=== PATIENT | male | born 1990 | race Caucasian/White ===

== ENCOUNTER 2024-08-29 13:51 | Inpatient (IN) ==
--- NOTE | 2024-08-29 14:10 | Emergency Department Note ---
Impression & Plan Right lower lobe pneumonia, Sepsis, Elevated procalcitonin, Acute dyspnea ED Provider Note HISTORY OF PRESENT ILLNESS: Patient is a 34-year-old male presenting with cough and shortness of breath. Patient reports that a week ago he was in [place] and he returned home and started having flulike symptoms over the last week. He states that in the last 4 days he has had significant worsening shortness of breath and cough. He reports he has been unable to sleep over the last few days secondary to having coughing fits when he lays down. He denies any DVT or PE history. Reports subjective fevers and chills at home. He has been taking DayQuil since yesterday for his symptoms. He denies any chest pain. He reports nausea and vomiting, but denies any diarrhea or abdominal pain. Reports his cough is productive of a clear sputum and denies any hemoptysis or color to the phlegm. ROS: as above PHYSICAL EXAM: Constitutional: Patient appears in no acute distress. HENT: Head: Normocephalic and atraumatic. Eyes: EOMI, PERRL Mouth/Throat: Mucous membranes moist. Neck: Trachea midline. Neck supple. Cardiovascular: Tachycardic with regular rhythm. No murmurs, rubs or gallops. Intact distal pulses. Pulmonary/Chest: Conversationally dyspneic. Tachypneic. Abdominal: Abdomen soft, no tenderness, rebound or guarding. Musculoskeletal: No edema, tenderness or deformity noted. Skin: Warm and dry. No rash, erythema, pallor or cyanosis Psychiatric: Appropriate mood and affect for situation. Neurological: Alert and keenly responsive. CN II-XII grossly intact, moving all extremities equally and fully. MDM: - Vitals signs showed tachycardia - History obtained via patient. History as above. - Chronic conditions affecting care: None - Differential diagnoses include, but are not limited to: Congestive heart failure; acute coronary syndrome; COPD/asthma exacerbation; pulmonary edema; pulmonary embolism; pneumonia; pneumothorax; viral syndrome - Order placed for continuous cardiac monitoring. At this time, monitor showed rate of 133 bpm with normal sinus rhythm, per my interpretation. - External medical records reviewed. - EKG image interpreted by myself showed normal sinus rhythm. Rate tachycardia at 114 bpm. QT 310. No acute ischemic changes. - Laboratory workup interpreted by myself showed normal WBC; normal PT/INR; hyponatremia (Na 133); normal lactate; normal troponin; elevated procalcitonin (1.62) - Blood cultures obtained - CXR image reviewed by myself showed what appears to be a right lower lobe pneumonia, per my interpretation. Radiology also notes a right lower lobe pneumonia. - Viral respiratory panel negative - Patient given 2L NS in ER. Patient's sepsis fluid volume calculation based on ideal body weight is 1936.20 mL. - Patient's HR improved with fluid resuscitation. Patient's blood pressure remained stable. - Given IV rocephin + azithromycin for antibiotic coverage - Given patient's tachycardia, tachypnea and evidence of pneumonia, he meets sepsis criteria. - CT PE obtained, given patient's tachypnea and tachycardia to rule out PE. - CT PE negative for PE. Noted to have the right lower lobe pneumonia and reactive lymphadenopathy. - Discussion was had with caser in about patient's case and need for admission - Hospitalist, Dr. Lui, consulted for admission - [facility] ASSESSMENT AND PLAN: Diagnosis: right lower lobe pneumonia; sepsis; elevated procalcitonin; acute dyspnea Plan: admit Past Med/Surg History Problem List (Updated 08/29/24 @ 15:22 by Ann Adorno MD) Acute dyspnea (Acute) Elevated procalcitonin (Acute) Sepsis (Acute) Right lower lobe pneumonia (Acute) Left shoulder pain (Acute) Social History Smoking Status: Never smoker Preferred Language: Venezuelan Feels Safe at Home: Yes Allergies Allergies Allergy/AdvReac Type Severity Reaction Status Date / Time Milk Containing Products Allergy Intermediate Gastrointestinal Unverified 08/29/24 15:44 (Dairy) Upset Penicillins AdvReac Mild RASH Unverified 08/29/24 15:42 Sulfa (Sulfonamide AdvReac Mild RASH Unverified 08/29/24 15:42 Antibiotics) Home Meds Home Medications Medication Instructions Recorded Confirmed No Known Home Medications 08/29/24 08/29/24 Results & Data (ED) Vital Signs Vital Signs - 24 hr 08/29/24 13:54 08/29/24 14:00 08/29/24 14:00 Pulse Rate 129 H Pulse Rate [Apical] 110 H Pulse Rhythm Respiratory Rate 20 16 Respiratory Effort / Characteristics Non-Labored Spontaneous Non-Labored Spontaneous Respiratory Depth Normal Normal Respiratory Pattern Regular Blood Pressure 139/64 Blood Pressure [Left Arm] 116/78 Blood Pressure Mean 89 Blood Pressure Mean [Left Arm] 90 Pulse Oximetry 97 95 95 Oxygen Delivery Method Room Air Room Air Room Air Sepsis Recent Fever Within 48 Hours Yes Sepsis New/Unexplained Change in Mental Status No Sepsis Action Taken by Nursing No Action Required 08/29/24 14:00 Pulse Rate 110 H Pulse Rate [Apical] Pulse Rhythm Regular Respiratory Rate 18 Respiratory Effort / Characteristics Respiratory Depth Respiratory Pattern Blood Pressure Blood Pressure [Left Arm] Blood Pressure Mean Blood Pressure Mean [Left Arm] Pulse Oximetry 95 Oxygen Delivery Method Room Air Sepsis Recent Fever Within 48 Hours Sepsis New/Unexplained Change in Mental Status Sepsis Action Taken by Nursing Laboratory Data 08/29/24 14:10 08/29/24 14:10 Lab Results 08/29/24 08/29/24 Range/Units 14:10 15:21 WBC 7.74 (4.8-10.8) K/ul RBC 5.23 (4.70-6.10) M/uL Hgb 15.4 (14.0-18.0) g/dl Hct 44.0 (42.0-52.0) % MCV 84.1 (80.0-100.0) fL MCH 29.4 (25.0-34.0) pg MCHC 35.0 (32.0-36.0) g/dL RDW Std Deviation 36.3 L (36.4-46.3) fL RDW Coeff of Zoraida 12.0 (11.5-14.5) % Plt Count 191 (130-400) K/uL MPV 9.9 (9.4-12.4) fL Immature Gran % (Auto) 0.5 % Neut % (Auto) 79.2 % Lymph % (Auto) 16.1 % [place] % (Auto) 4.1 % Eos % (Auto) 0.0 % Baso % (Auto) 0.1 % Neut # (Auto) 6.12 (1.40-6.50) K/uL Lymph # (Auto) 1.25 (1.20-3.40) K/uL [place] # (Auto) 0.32 (0.11-0.59) K/uL Eos # (Auto) 0.00 (0.00-0.50) K/uL Baso # (Auto) 0.01 (0.00-0.20) K/uL Immature Gran # (Auto) 0.04 (0.01-0.20) K/uL PT 10.7 (9.0-12.0) Seconds INR 1.0 (0.9-1.1) APTT 33 H (21-31) Seconds PTT Ratio 1.2 Sodium 133 L (136-145) mmol/L Potassium 3.8 (3.5-5.1) mmol/L Chloride 96 L (98-107) mmol/L Carbon Dioxide 26 (21-32) mmol/L Anion Gap 11 (3-11) BUN 12 (6-23) mg/dl Creatinine 1.11 (0.6-1.4) mg/dl Est Cr Clr Drug Dosing 101.4 ml/min eGFR 90.48 BUN/Creatinine Ratio 10.8 (10-20) Glucose 104 H (70-99(Fasting)) mg/dl Lactate 1.6 (0.4-2.0) mmol/L Calcium 8.8 (8.6-10.3) mg/dl Magnesium 2.0 (1.7-2.4) mg/dl Total Bilirubin 0.8 (0.2-1.0) mg/dl AST 46 H (13-39) U/L ALT 23 (7-52) U/L Alkaline Phosphatase 61 (34-104) U/L Troponin I High Sens 10.3 (0-20) pg/ml Total Protein 8.2 (6.0-8.3) gm/dl Albumin 3.9 (3.4-5.0) gm/dl Globulin 4.3 H (2.5-4.0) gm/dl Albumin/Globulin Ratio 0.9 (0.9-2) Procalcitonin 1.62 H (0-0.5) ng/ml Urine Comment Adenovirus (PCR) Not Detected (NotDetected) B. pertussis DNA (PCR) Not Detected (NotDetected) B.parapertussis DNA PCR Not Detected (NotDetected) C. pneumoniae DNA (PCR) Not Detected (NotDetected) Coronavirus OC43 (PCR) Not Detected (NotDetected) Coronavirus HKU1 (PCR) Not Detected (NotDetected) Coronavirus 229E (PCR) Not Detected (NotDetected) SARS-CoV-2 (PCR) Not Detected (NotDetected) Coronavirus NL63 (PCR) Not Detected (NotDetected) Human Metapneumovir PCR Not Detected (NotDetected) Influenza Type A (PCR) Not Detected (NotDetected) Influenza Type B (PCR) Not Detected (NotDetected) M. pneumoniae (PCR) Not Detected (NotDetected) Parainfluenza 1 (PCR) Not Detected (NotDetected) Parainfluenza 2 (PCR) Not Detected (NotDetected) Parainfluenza 3 (PCR) Not Detected (NotDetected) Parainfluenza 4 (PCR) Not Detected (NotDetected) RSV (PCR) Not Detected (NotDetected) Entero/Rhino (PCR) Not Detected (NotDetected) Administered Medications Discontinued Medications Azithromycin (Azithromycin 250 Mg Tab) 500 mg PO NOW ONE Stop: 08/29/24 14:59 Last Admin: 08/29/24 15:12 Dose: 500 mg Documented By: MARGARITA Sodium Chloride (Nss) 2,000 mls @ 999 mls/hr IV .Q2H1M ONE Stop: 08/29/24 15:59 Last Admin: 08/29/24 14:29 Dose: 999 mls/hr Documented By: CHELSIE Ceftriaxone Sodium (Rocephin) 2,000 mg in 50 mls @ 100 mls/hr IV NOW STA Stop: 08/29/24 15:27 Last Infusion: 08/29/24 15:52 Dose: Infused Documented By: Admin: 08/29/24 15:11 Dose: 100 mls/hr Documented By: MARGARITA Ioversol (Optiray 320 125ml) 119 ml IV ONCE ONE Stop: 08/29/24 15:26 Last Admin: 08/29/24 15:25 Dose: 119 ml Documented By: EDK Imaging Data Radiologist's Impression: Chest X-Ray 08/29/24 13:59 Chest radiograph, one view History: Sepsis Comparison: None Findings: Single AP view of the chest performed. Right lower lobe consolidation. No visualized pleural effusion. No pneumothorax. The cardiomediastinal silhouette is within normal limits. Normal pulmonary vascularity. No evidence for lymphadenopathy. No visualized bony or soft tissue abnormality. Impression: Right lower lobe pneumonia Electronically signed by Solitario Saucedo 08-29-2024 2:43 PM Chest CTA 08/29/24 14:07 CT pulmonary angiogram with IV contrast History: Cough COMPARISON: None TECHNIQUE: CT angiography of the chest was performed without IV contrast followed by IV contrast, including 3D post processing CTA image reconstruction. Dose reduction techniques were achieved by using automatic exposure control and/or adjustment of mA and/or kV according to patient size and/or use of iterative reconstruction technique. FINDINGS: Diagnostic quality: Adequate There is no evidence for pulmonary embolism. The heart is not enlarged. There is no pericardial effusion. Prominent mediastinal and right hilar lymph nodes, are likely reactive, for example at the subcarinal station measuring 19 mm short axis diameter. At the right hilum, axial image 65, is a 29 x 21 mm lymph node. The central tracheobronchial tree is clear. Patchy consolidative opacities throughout the right lower lobe. Small right pleural effusion. Limited visualized upper abdomen. No destructive osseous changes are seen. IMPRESSION: No evidence for pulmonary embolism. Right lower lobe pneumonia. Small pleural effusion. Reactive lymphadenopathy. Electronically signed by Solitario Saucedo 08-29-2024 3:54 PM Discharge Plan Visit Data Chief Complaint: Illness Stated Complaint: COUGH, FEVER, VOMITING FOR 7 DAYS ED Provider: Ann Adorno Discharge Problem: Right lower lobe pneumonia, Sepsis, Elevated procalcitonin, Acute dyspnea Condition: Fair Forms Stand Alone Forms: My [employer] Prescriptions Prescriptions: No Action No Known Home Medications Referrals Referrals: PCP,NO [Primary Care Provider] -
[2024-08-29 14:29] LABS: Hemoglobin 15.4 g/dl (14.0-18.0); Mean Corpuscular Hemoglobin 29.4 pg (25.0-34.0); Mean Corpuscular Volume 84.1 fL (80.0-100.0); Mean Platelet Volume 9.9 fL (9.4-12.4); Platelet Count 191 K/uL (130-400); RDW Standard Deviation 36.3 fL (36.4-46.3); Red Blood Count 5.23 M/uL (4.70-6.10); White Blood Count 7.74 K/ul (4.8-10.8)
[2024-08-29] MEDS: SODIUM CHLORIDE 0.9% 2,000 ML IV ONE (14:29)
--- NOTE | 2024-08-29 14:43 | XRay Report ---
Chest radiograph, one view History: Sepsis Comparison: None Findings: Single AP view of the chest performed. Right lower lobe consolidation. No visualized pleural effusion. No pneumothorax. The cardiomediastinal silhouette is within normal limits. Normal pulmonary vascularity. No evidence for lymphadenopathy. No visualized bony or soft tissue abnormality. Impression: Right lower lobe pneumonia Electronically signed by Solitario Saucedo 08-29-2024 2:43 PM
[2024-08-29 14:45] LABS: Basophils # (auto) 0.01 K/uL (0.00-0.20); Basophils % (auto) 0.1 %; Immature Granulocytes # (auto) 0.04 K/uL (0.01-0.20); Immature Granulocytes % (auto) 0.5 %; Lymphocytes # (auto) 1.25 K/uL (1.20-3.40); Lymphocytes % (auto) 16.1 %; Monocytes # (auto) 0.32 K/uL (0.11-0.59); Monocytes % (auto) 4.1 %; Neutrophils # (auto) 6.12 K/uL (1.40-6.50); Neutrophils % (auto) 79.2 %
[2024-08-29 14:47] LABS: Albumin Globulin Ratio 0.9 (0.9-2); Albumin Level 3.9 gm/dl (3.4-5.0); BUN Creatinine Ratio 10.8 (10-20); Bilirubin,Total 0.8 mg/dl (0.2-1.0); Calcium 8.8 mg/dl (8.6-10.3); Creatinine Clr Calc Pharmacy 101.4 ml/min; Globulin 4.3 gm/dl (2.5-4.0); Partial Thromboplastin Ratio 1.2; Partial Thromboplastin Time 33 Seconds (21-31); Potassium 3.8 mmol/L (3.5-5.1); Prothrombin Time 10.7 Seconds (9.0-12.0); Total Protein 8.2 gm/dl (6.0-8.3)
[2024-08-29 14:54] LABS: Troponin I High Sensitivity 10.3 pg/ml (0-20)
[2024-08-29] MEDS: cefTRIAXone SODIUM 2,000 MG/50 ML BAG IV STA (15:11)
[2024-08-29] MEDS: AZITHROMYCIN 250 MG TAB PO ONE (15:12)
[2024-08-29 15:18] LABS: Adenovirus PCR Not Detected (NotDetected); Bordetella parapertussis PCR Not Detected (NotDetected); Bordetella pertussis PCR Not Detected (NotDetected); Chlamydia pneumoniae PCR Not Detected (NotDetected); Coronavirus 229E PCR Not Detected (NotDetected); Coronavirus CoV-2 (COVID19)PCR Not Detected (NotDetected); Coronavirus HKU1 PCR Not Detected (NotDetected); Coronavirus NL63 PCR Not Detected (NotDetected); Coronavirus OC43PCR Not Detected (NotDetected); Human Metapneumovirus PCR Not Detected (NotDetected); Influenza A PCR Not Detected (NotDetected); Influenza B PCR Not Detected (NotDetected); Mycoplasma pneumoniae PCR Not Detected (NotDetected); Parainfluenza Virus 1 PCR Not Detected (NotDetected); Parainfluenza Virus 2 PCR Not Detected (NotDetected); Parainfluenza Virus 3 PCR Not Detected (NotDetected); Parainfluenza Virus 4 PCR Not Detected (NotDetected); Respiratory Syncytial VirusPCR Not Detected (NotDetected); Rhinovirus/Enterovirus PCR Not Detected (NotDetected)
[2024-08-29] MEDS: OPTIRAY 320 125ml IV ONE (15:25)
--- NOTE | 2024-08-29 15:56 | CT Scan Report ---
CT pulmonary angiogram with IV contrast History: Cough COMPARISON: None TECHNIQUE: CT angiography of the chest was performed without IV contrast followed by IV contrast, including 3D post processing CTA image reconstruction. Dose reduction techniques were achieved by using automatic exposure control and/or adjustment of mA and/or kV according to patient size and/or use of iterative reconstruction technique. FINDINGS: Diagnostic quality: Adequate There is no evidence for pulmonary embolism. The heart is not enlarged. There is no pericardial effusion. Prominent mediastinal and right hilar lymph nodes, are likely reactive, for example at the subcarinal station measuring 19 mm short axis diameter. At the right hilum, axial image 65, is a 29 x 21 mm lymph node. The central tracheobronchial tree is clear. Patchy consolidative opacities throughout the right lower lobe. Small right pleural effusion. Limited visualized upper abdomen. No destructive osseous changes are seen. IMPRESSION: No evidence for pulmonary embolism. Right lower lobe pneumonia. Small pleural effusion. Reactive lymphadenopathy. Electronically signed by Solitario Saucedo 08-29-2024 3:54 PM
[2024-08-29 16:15] LABS: Appearance Urine Clear (Clear); Bacteria Urine Automated None Seen (None Seen); Bilirubin Urine Negative (Negative); Blood Urine Trace (Negative); Color Urine Dark Yellow; Epithelial Cell Urine Auto 0-2 /hpf (0-2); Glucose Urine UA Negative (Negative); Granular Casts Urine Present /lpf (None Prsent); Ketones Urine 3+ (Negative); Leukocyte Esterase Urine Negative (Negative); Nitrite Urine Negative (Negative); Protein Urine 2+ (Negative); RBC Urine Automated 0-2 /hpf (0-2); Specific Gravity Urine 1.025 (1.000-1.030); Urobilinogen Urine Positive (Negative); WBC Urine Automated 0-5 /hpf (0-5); pH Urine 5.5 (4.5-7.5)
--- NOTE | 2024-08-29 16:33 | History & Physical Report ---
Date of Service August 29, 2024 Assessment & Plan (1) Acute dyspnea: (2) Elevated procalcitonin: (3) Right lower lobe pneumonia: Plan The patient is a 34 year old male with no pmh who presents to the ED on 08/29/2024 with complaints of cough/intermittent shortness of breath x 1 week lobe pneumonia Assessment and plan: Dyspnea Right lower lobe pneumonia BioFire negative, procalcitonin elevated, subjective fevers at home Continue p.o. Zithromax and IV ceftriaxone, blood cultures pending Robitussin as needed for cough, incentive spirometry currently not requiring oxygen at this time; monitor fever curve. Will likely be a short hospital stay, ADC in the next 24 hours if blood cultures negative and symptoms improve A total of 60 minutes was spent on chart review/reviewing diagnostic data/facilitating plan of care/discussion with consultants DVT prophylaxis: SCDs Full code History of Present Illness Chief Complaint: Cough, shortness of breath Primary Care Provider: NO PCP The patient is a 34-year-old male with no past medical history who presents to the ED on 08/29/2024 with complaints of cough, intermittent shortness of breath flulike symptoms x 1 week. Reports intermittent fevers, subjective.. Also reports loss of appetite. Denies any nausea/vomiting does report bringing up some yellow sputum. Denies any recent sick contacts. Denies any recent travel. patient was mildly tachycardic in the low 100s on arrival. No hypoxia noted. Denies any smoking/drug use On arrival to the ED, labs are remarkable for NA 133, chloride 96, glucose 104, AST 46, procalcitonin 1.62 BioFire negative Chest x-ray with right lower lobe pneumonia Chest CT showed right lower lobe pneumonia, small pleural effusion, reactive lymphadenopathy, negative for PE The patient will be admitted for further management of pneumonia Allergies Allergy/AdvReac Type Severity Reaction Status Date / Time Milk Containing Products Allergy Intermediate Gastrointestinal Unverified 08/29/24 15:44 (Dairy) Upset Penicillins AdvReac Mild RASH Unverified 08/29/24 15:42 Sulfa (Sulfonamide AdvReac Mild RASH Unverified 08/29/24 15:42 Antibiotics) Home Medications Medication Instructions Recorded Confirmed Type No Known Home Medications 08/29/24 08/29/24 History Past Med/Surg History Problem List (Updated 08/29/24 @ 15:22 by Ann Adorno MD) Acute dyspnea (Acute) Elevated procalcitonin (Acute) Sepsis (Acute) Right lower lobe pneumonia (Acute) Left shoulder pain (Acute) Social History Smoking Status: Never smoker Preferred Language: Maltese Feels Safe at Home: Yes Review of Systems Review of Systems: All systems reviewed & are unremarkable except as noted in HPI & below Physical Exam Constitutional: WD/WN, vitals as above Eyes: PERRL, conjunctivae normal, anicteric sclerae ENMT: external ear and nose normal, oropharynx normal Neck: trachea midline, no thyromegaly Respiratory: normal respiratory effort, lungs clear to auscultation + cough and able to speak in complete sentences Auscultation: + rales and + rhonchi Cardiovascular: RRR, no murmur, no edema Gastrointestinal (Abdomen): normal bowel sounds, soft, nontender, no hepatosplenomegaly Musculoskeletal: no cyanosis or clubbing, extremities motor strength 5/5 Neurologic: PERRL, EOMI, accommodation nl, no face palsy, no dysarthria Lymphatic: no cervical or axillary lymphadenopathy Results & Data Results & Data Vital Signs (Past 12 Hours) Vital Signs Pulse Pulse Resp BP BP Pulse Ox O2 Del Method 08/29/24 16:00 108 H 19 108/80 95 Room Air 08/29/24 15:39 105 H 25 H 129/67 92 Room Air 08/29/24 14:00 110 H 18 95 Room Air 08/29/24 14:00 95 Room Air 08/29/24 14:00 110 H 16 116/78 95 Room Air 08/29/24 13:54 129 H 20 139/64 97 Room Air Diagnostic Findings Laboratory Results WBC 7.74 K/ul (4.8-10.8) 08/29/24 14:10 RBC 5.23 M/uL (4.70-6.10) 08/29/24 14:10 Hgb 15.4 g/dl (14.0-18.0) 08/29/24 14:10 Hct 44.0 % (42.0-52.0) 08/29/24 14:10 MCV 84.1 fL (80.0-100.0) 08/29/24 14:10 MCH 29.4 pg (25.0-34.0) 08/29/24 14:10 MCHC 35.0 g/dL (32.0-36.0) 08/29/24 14:10 RDW Std Deviation 36.3 fL (36.4-46.3) L 08/29/24 14:10 RDW Coeff of Zoraida 12.0 % (11.5-14.5) 08/29/24 14:10 Plt Count 191 K/uL (130-400) 08/29/24 14:10 MPV 9.9 fL (9.4-12.4) 08/29/24 14:10 Immature Gran % (Auto) 0.5 % 08/29/24 14:10 Neut % (Auto) 79.2 % 08/29/24 14:10 Lymph % (Auto) 16.1 % 08/29/24 14:10 [place] % (Auto) 4.1 % 08/29/24 14:10 Eos % (Auto) 0.0 % 08/29/24 14:10 Baso % (Auto) 0.1 % 08/29/24 14:10 Neut # (Auto) 6.12 K/uL (1.40-6.50) 08/29/24 14:10 Lymph # (Auto) 1.25 K/uL (1.20-3.40) 08/29/24 14:10 [place] # (Auto) 0.32 K/uL (0.11-0.59) 08/29/24 14:10 Eos # (Auto) 0.00 K/uL (0.00-0.50) 08/29/24 14:10 Baso # (Auto) 0.01 K/uL (0.00-0.20) 08/29/24 14:10 Immature Gran # (Auto) 0.04 K/uL (0.01-0.20) 08/29/24 14:10 PT 10.7 Seconds (9.0-12.0) 08/29/24 14:10 INR 1.0 (0.9-1.1) 08/29/24 14:10 APTT 33 Seconds (21-31) H 08/29/24 14:10 PTT Ratio 1.2 08/29/24 14:10 Sodium 133 mmol/L (136-145) L 08/29/24 14:10 Potassium 3.8 mmol/L (3.5-5.1) 08/29/24 14:10 Chloride 96 mmol/L (98-107) L 08/29/24 14:10 Carbon Dioxide 26 mmol/L (21-32) 08/29/24 14:10 Anion Gap 11 (3-11) 08/29/24 14:10 BUN 12 mg/dl (6-23) 08/29/24 14:10 Creatinine 1.11 mg/dl (0.6-1.4) 08/29/24 14:10 Est Cr Clr Drug Dosing 101.4 ml/min 08/29/24 14:10 eGFR 90.48 08/29/24 14:10 BUN/Creatinine Ratio 10.8 (10-20) 08/29/24 14:10 Glucose 104 mg/dl (70-99(Fasting)) H 08/29/24 14:10 Lactate 1.6 mmol/L (0.4-2.0) 08/29/24 14:10 Calcium 8.8 mg/dl (8.6-10.3) 08/29/24 14:10 Magnesium 2.0 mg/dl (1.7-2.4) 08/29/24 14:10 Total Bilirubin 0.8 mg/dl (0.2-1.0) 08/29/24 14:10 AST 46 U/L (13-39) H 08/29/24 14:10 ALT 23 U/L (7-52) 08/29/24 14:10 Alkaline Phosphatase 61 U/L (34-104) 08/29/24 14:10 Troponin I High Sens 10.3 pg/ml (0-20) 08/29/24 14:10 Total Protein 8.2 gm/dl (6.0-8.3) 08/29/24 14:10 Albumin 3.9 gm/dl (3.4-5.0) 08/29/24 14:10 Globulin 4.3 gm/dl (2.5-4.0) H 08/29/24 14:10 Albumin/Globulin Ratio 0.9 (0.9-2) 08/29/24 14:10 Procalcitonin 1.62 ng/ml (0-0.5) H 08/29/24 14:10 Urine Color Dark Yellow 08/29/24 15:21 Urine Appearance Clear (Clear) 08/29/24 15:21 Urine pH 5.5 (4.5-7.5) 08/29/24 15:21 Ur Specific [place] 1.025 (1.000-1.030) 08/29/24 15:21 Urine Protein 2+ (Negative) H 08/29/24 15:21 Urine Glucose (UA) Negative (Negative) 08/29/24 15:21 Urine Ketones 3+ (Negative) H 08/29/24 15:21 Urine Blood Trace (Negative) H 08/29/24 15:21 Urine Nitrite Negative (Negative) 08/29/24 15:21 Urine Bilirubin Negative (Negative) 08/29/24 15:21 Urine Urobilinogen Positive (Negative) H 08/29/24 15:21 Ur Leukocyte Esterase Negative (Negative) 08/29/24 15:21 Urine WBC (Auto) 0-5 /hpf (0-5) 08/29/24 15:21 Urine RBC (Auto) 0-2 /hpf (0-2) 08/29/24 15:21 U Hyaline Cast (Auto) 3-5 /lpf (0-2) H 08/29/24 15:21 U Epithel Cells (Auto) 0-2 /hpf (0-2) 08/29/24 15:21 Urine Bacteria (Auto) None Seen (None Seen) 08/29/24 15:21 Granular Casts Present /lpf (None Prsent) A 08/29/24 15:21 Urine Comment 08/29/24 15:21 Adenovirus (PCR) Not Detected (NotDetected) 08/29/24 14:10 B. pertussis DNA (PCR) Not Detected (NotDetected) 08/29/24 14:10 B.parapertussis DNA PCR Not Detected (NotDetected) 08/29/24 14:10 C. pneumoniae DNA (PCR) Not Detected (NotDetected) 08/29/24 14:10 Coronavirus OC43 (PCR) Not Detected (NotDetected) 08/29/24 14:10 Coronavirus HKU1 (PCR) Not Detected (NotDetected) 08/29/24 14:10 Coronavirus 229E (PCR) Not Detected (NotDetected) 08/29/24 14:10 SARS-CoV-2 (PCR) Not Detected (NotDetected) 08/29/24 14:10 Coronavirus NL63 (PCR) Not Detected (NotDetected) 08/29/24 14:10 Human Metapneumovir PCR Not Detected (NotDetected) 08/29/24 14:10 Influenza Type A (PCR) Not Detected (NotDetected) 08/29/24 14:10 Influenza Type B (PCR) Not Detected (NotDetected) 08/29/24 14:10 M. pneumoniae (PCR) Not Detected (NotDetected) 08/29/24 14:10 Parainfluenza 1 (PCR) Not Detected (NotDetected) 08/29/24 14:10 Parainfluenza 2 (PCR) Not Detected (NotDetected) 08/29/24 14:10 Parainfluenza 3 (PCR) Not Detected (NotDetected) 08/29/24 14:10 Parainfluenza 4 (PCR) Not Detected (NotDetected) 08/29/24 14:10 RSV (PCR) Not Detected (NotDetected) 08/29/24 14:10 Entero/Rhino (PCR) Not Detected (NotDetected) 08/29/24 14:10 Impressions Chest X-Ray 08/29/24 13:59 Chest radiograph, one view History: Sepsis Comparison: None Findings: Single AP view of the chest performed. Right lower lobe consolidation. No visualized pleural effusion. No pneumothorax. The cardiomediastinal silhouette is within normal limits. Normal pulmonary vascularity. No evidence for lymphadenopathy. No visualized bony or soft tissue abnormality. Impression: Right lower lobe pneumonia Electronically signed by Solitario Saucedo 08-29-2024 2:43 PM Chest CTA 08/29/24 14:07 CT pulmonary angiogram with IV contrast History: Cough COMPARISON: None TECHNIQUE: CT angiography of the chest was performed without IV contrast followed by IV contrast, including 3D post processing CTA image reconstruction. Dose reduction techniques were achieved by using automatic exposure control and/or adjustment of mA and/or kV according to patient size and/or use of iterative reconstruction technique. FINDINGS: Diagnostic quality: Adequate There is no evidence for pulmonary embolism. The heart is not enlarged. There is no pericardial effusion. Prominent mediastinal and right hilar lymph nodes, are likely reactive, for example at the subcarinal station measuring 19 mm short axis diameter. At the right hilum, axial image 65, is a 29 x 21 mm lymph node. The central tracheobronchial tree is clear. Patchy consolidative opacities throughout the right lower lobe. Small right pleural effusion. Limited visualized upper abdomen. No destructive osseous changes are seen. IMPRESSION: No evidence for pulmonary embolism. Right lower lobe pneumonia. Small pleural effusion. Reactive lymphadenopathy. Electronically signed by Solitario Saucedo 08-29-2024 3:54 PM Supervising Physician Co-Signing Physician Notes I have seen and discussed the case with the collaborating advanced practitioner. I agree with the above H&P. I have reviewed and confirmed the patients medical history, the findings on physical examination, and the patients diagnosis and treatment plan with Ave LOAI[facility] and agree with the information documented. Mr. Garcia is a 34 yo with no significant history admitted for management of community acquired pneumonia Patient with fevers, chills and SOB #CAP #RLL pneumonia CTx and azithromycin sputum culture ordered MRSA nare ordered Vanc empirically, d/c if MRSA nare negative mucolytics as above rest of plan as above I spent a total of 25 minutes coordinating, documenting, and providing care for this patient excluding time spent in the performance of separately billed services. All of the aforementioned completed outside of collaborating with the assigned advanced practitioner for a full treatment plan. I have reviewed the advanced practitioner's documentation, and I agree with, and take responsibility for the plan of care
[2024-08-29] MEDS: guaiFENesin/DEXTROM SYRUP 100MG/10MG 5ML UDC PO ONE (16:57)
[2024-08-29] MEDS: LACTATED RINGER'S 1,000 ML IV SCH (16:57)
[2024-08-29] MEDS: ACETAMINOPHEN 325 MG TAB PO PRN (17:46)
[2024-08-29] MEDS ORDERED: VANCOMYCIN HCL 1,750 MG in SODIUM CHLORIDE 0.9% 500 ML IV ONE (18:23)
[2024-08-29] MEDS ORDERED: VANCOMYCIN CONSULT ACTIVE PRN (18:23)
[2024-08-29] MEDS: BENZONATATE 100 MG CAPSULE PO PRN (20:06)
[2024-08-29] MEDS: VANCOMYCIN HCL 2,000 MG in SODIUM CHLORIDE 0.9% 500 ML IV ONE (20:08)
[2024-08-29] MEDS: ALBUTEROL 0.5% NEB SOLN 2.5 MG/0.5 ML VIAL NEB PRN (20:55)
[2024-08-30] MEDS: COUGH DROP (SUGAR FREE) LOZ 24 LOZ/1 BOX BUCCAL ONE (06:28)
[2024-08-30 08:23] LABS: Hematocrit (blood only) 39.1 % (42.0-52.0); Hemoglobin 13.5 g/dl (14.0-18.0); Mean Corpuscular Hemoglobin 29.3 pg (25.0-34.0); Mean Corpuscular Hgb Conc 34.5 g/dL (32.0-36.0); Mean Corpuscular Volume 84.8 fL (80.0-100.0); Mean Platelet Volume 10.2 fL (9.4-12.4); Platelet Count 190 K/uL (130-400); RDW Standard Deviation 37.2 fL (36.4-46.3); Red Blood Count 4.61 M/uL (4.70-6.10); White Blood Count 7.42 K/ul (4.8-10.8)
[2024-08-30] MEDS: AZITHROMYCIN 250 MG TAB PO SCH (08:36)
[2024-08-30 08:48] LABS: Albumin Globulin Ratio 1.2 (0.9-2); Albumin Level 3.6 gm/dl (3.4-5.0); BUN Creatinine Ratio 10.9 (10-20); Bilirubin,Total 0.6 mg/dl (0.2-1.0); Calcium 8.2 mg/dl (8.6-10.3); Creatinine Clr Calc Pharmacy 122.4 ml/min; Potassium 3.7 mmol/L (3.5-5.1); Total Protein 6.6 gm/dl (6.0-8.3)
[2024-08-30 09:25] LABS: Basophils # (auto) 0.01 K/uL (0.00-0.20); Basophils % (auto) 0.1 %; Immature Granulocytes # (auto) 0.04 K/uL (0.01-0.20); Immature Granulocytes % (auto) 0.5 %; Lymphocytes # (auto) 1.67 K/uL (1.20-3.40); Lymphocytes % (auto) 22.5 %; Monocytes # (auto) 0.23 K/uL (0.11-0.59); Monocytes % (auto) 3.1 %; Neutrophils # (auto) 5.47 K/uL (1.40-6.50); Neutrophils % (auto) 73.8 %
--- NOTE | 2024-08-30 11:17 | Electrocardiogram Report ---
Test Reason : Blood Pressure : */* mmHG Vent. Rate : 114 BPM Atrial Rate : 114 BPM P-R Int : 126 ms QRS Dur : 90 ms QT Int : 310 ms P-R-T Axes : 62 81 14 degrees QTcB Int : 427 ms Sinus tachycardia Otherwise normal ECG No previous ECGs available Confirmed by Jose A Winter ([id number]) on 08/30/2024 11:17:06 AM Referred By: REFERRED SELF Confirmed By: Jose A Winter
--- NOTE | 2024-08-30 11:56 | Hospitalist Progress Note ---
Date of Service August 30, 2024 Assessment & Plan (1) Acute dyspnea: (2) Elevated procalcitonin: (3) Right lower lobe pneumonia: Plan 34 year old male with no pmh who presents to the ED on 08/29/2024 with complaints of cough/intermittent shortness of breath x 1 week and noted to have Right lower lobe pneumonia. He is being managed for the following: Dyspnea Right lower lobe pneumonia Sepsis POA: 2/2 pna Pt comes in w/ productive cough x1 week and fever. BioFire negative, procalcitonin elevated, lactate normal, MRSA neg. HR and Temp elevated at presentation. f/u admitting blood and sputum Cx. Continue p.o. Zithromax 08/29 and IV ceftriaxone 08/29 Robitussin as needed for cough, incentive spirometry Fever control getting better, pt feels better and reports improving N, V and appetite. DVT prophylaxis: Hep sc. Full code Admission and Anticipated Discharge Date Admission Date: August 29, 2024 Subjective Patient was seen and examined at bedside. Patient was sitting up in chair, on room air, appeared tired. Patient reports improving nausea, vomiting, reports slightly improving appetite. Patient denies diarrhea. Patient reports cough about the same. Pulse ox with oxygen of 91% on RA, plan to keep patient on 2 L oxygen per today, reassess in AM. Patient was offered if he wants me to update his family members, patient did decline and he stated he will update himself. Physical Exam Physical Exam: Constitutional: WD/WN, appears sic k and tired. Eyes: PERRL, conjunctiva e normal, anicteri c sclerae ENMT: external ear and n ose normal, oropha rynx normal Neck: trachea midline, n o thyromegaly Respiratory: normal respiratory effort, lungs viola ar to auscultation + cough and able to speak in compl ete sentences Aus cultation: b/l occ crackles, increas ed BS RLL Cardiovascular: RRR, no murmur, no edema Gastrointestinal ( Abdomen): normal bowel sound s, soft, nontender , no hepatosplenom egaly Musculoskeletal: no cyanosis or clu bbing, extremities motor strength 5/ 5 Neurologic: PERRL, EOMI, accom modation nl, no fa ce palsy, no dysar thria Lymphatic: no cervical or axi llary lymphadenopa thy Results & Data Results & Data Vital Signs (Past 12 Hours) Vital Signs Temp Pulse Pulse Resp BP Pulse Ox O2 Del Method 08/30/24 07:46 Room Air 08/30/24 07:30 37.2 C 98 H 16 134/78 93 Room Air 08/30/24 04:34 39.4 C H 107 H 18 93 Room Air
[2024-08-30] MEDS ORDERED: cefTRIAXone SODIUM 1,000 MG/50 ML BAG IV SCH (15:00)
[2024-08-30] MEDS: cefTRIAXone SODIUM 2,000 MG/50 ML BAG IV SCH (17:00)
[2024-08-30] MEDS: HEPARIN SOD 5,000 UNIT/0.5 ML VIAL SQ SCH (19:19)
[2024-08-30] MEDS ORDERED: MELATONIN 3 MG TAB PO PRN (20:43)
[2024-08-31 07:27] LABS: Hematocrit (blood only) 37.8 % (42.0-52.0); Mean Corpuscular Hemoglobin 28.9 pg (25.0-34.0); Mean Corpuscular Hgb Conc 34.4 g/dL (32.0-36.0); Platelet Count 205 K/uL (130-400); RDW Coefficient of Variation 12.2 % (11.5-14.5); RDW Standard Deviation 37.4 fL (36.4-46.3); White Blood Count 5.85 K/ul (4.8-10.8)
[2024-08-31 07:48] LABS: BUN Creatinine Ratio 12.2 (10-20); Calcium 8.3 mg/dl (8.6-10.3); Creatinine Clr Calc Pharmacy 137.3 ml/min; Magnesium 2.2 mg/dl (1.7-2.4); Phosphorus 2.8 mg/dl (2.5-4.9); Potassium 3.7 mmol/L (3.5-5.1)
[2024-08-31] MEDS: HYDROcodone/HOMATROPINE SYRUP 5MG/1.5MG 5ML UDP PO PRN (08:49)
--- NOTE | 2024-08-31 12:56 | Hospitalist Progress Note ---
Date of Service August 31, 2024 Assessment & Plan (1) Acute dyspnea: (2) Elevated procalcitonin: (3) Right lower lobe pneumonia: Plan 34 year old male with no pmh who presents to the ED on 08/29/2024 with complaints of cough/intermittent shortness of breath x 1 week and noted to have Right lower lobe pneumonia. He is being managed for the following: Dyspnea Right lower lobe pneumonia Sepsis POA: 2/2 pna Pt comes in w/ productive cough x1 week and fever. BioFire negative, procalcitonin elevated, lactate normal, MRSA neg. HR and Temp elevated at presentation. f/u admitting blood and sputum Cx. No growth so far. Continue p.o. Zithromax 08/29 and IV ceftriaxone 08/29, will get CXR in AM. Robitussin as needed for cough, incentive spirometry Fever control getting better, Tmax 38.1C, pt feels better and reports improving N, V and appetite. Will c/w IV atb today, except dc next 1-2 if pt is afebrile for > 24 hours and CXR w/ no new issues. DVT prophylaxis: Hep sc. Full code Admission and Anticipated Discharge Date Admission Date: August 29, 2024 Subjective Patient was seen and examined at bedside. Patient was sitting up in chair, on room air, appeared tired. Patient reports improving nausea, vomiting, reports improving appetite. Patient denies diarrhea. Patient reports cough improving, reports feeling better significantly. Physical Exam Physical Exam: Constitutional: WD/WN, appears sic k and tired. Eyes: PERRL, conjunctiva e normal, anicteri c sclerae ENMT: external ear and n ose normal, oropha rynx normal Neck: trachea midline, n o thyromegaly Respiratory: normal respiratory effort, lungs viola ar to auscultation + cough and able to speak in compl ete sentences Aus cultation: b/l occ crackles - improv ing, today decreas ed RLL breath soun ds Cardiovascular: RRR, no murmur, no edema Gastrointestinal ( Abdomen): normal bowel sound s, soft, nontender , no hepatosplenom egaly Musculoskeletal: no cyanosis or clu bbing, extremities motor strength 5/ 5 Neurologic: PERRL, EOMI, accom modation nl, no fa ce palsy, no dysar thria Lymphatic: no cervical or axi llary lymphadenopa thy Results & Data Results & Data Vital Signs (Past 12 Hours) Vital Signs Temp Pulse Resp BP Pulse Ox O2 Del Method 08/31/24 09:14 Room Air 08/31/24 08:02 37.3 C 90 16 139/72 94 Room Air
[2024-08-31 22:02] VITALS: RESP 18
[2024-09-01 07:09] LABS: Hematocrit (blood only) 38.3 % (42.0-52.0); Hemoglobin 13.3 g/dl (14.0-18.0); Mean Corpuscular Hemoglobin 29.5 pg (25.0-34.0); Mean Corpuscular Hgb Conc 34.7 g/dL (32.0-36.0); Mean Corpuscular Volume 84.9 fL (80.0-100.0); Mean Platelet Volume 10.2 fL (9.4-12.4); Platelet Count 239 K/uL (130-400); RDW Coefficient of Variation 12.4 % (11.5-14.5); RDW Standard Deviation 38.5 fL (36.4-46.3); Red Blood Count 4.51 M/uL (4.70-6.10); White Blood Count 4.88 K/ul (4.8-10.8)
[2024-09-01 07:30] LABS: BUN Creatinine Ratio 11.8 (10-20); Calcium 8.7 mg/dl (8.6-10.3); Creatinine Clr Calc Pharmacy 132.5 ml/min
--- NOTE | 2024-09-01 07:41 | XRay Report ---
EXAM: XR chest 1V portable CLINICAL HISTORY: f/u rll pna, ro increase in pleural effusion TECHNIQUE: Radiograph of chest was acquired. COMPARISON: 08/29/2024 13:11:00 THERMAL CUTTER HAND FINDINGS: Inhomogeneous opacity is noted involving right lower zone - suggestive of right lower lobar consolidation. Blunted right costophrenic angle - suggestive of pleural effusion. Rest of both lungs are clear. The cardiomediastinal silhouette is within normal limits. No acute osseous abnormality. IMPRESSION: 1. Inhomogeneous opacity is noted involving right lower zone - suggestive of right lower lobar consolidation.-increased 2. Blunted right costophrenic angle - suggestive of pleural effusion.-new developed. Electronically signed by Francisco De Leon 09-01-2024 07:40 AM
[2024-09-01 07:44] VITALS: TEMP 98.2
[2024-09-01 12:00] VITALS: BP 132/80; PULSE 67; O2SAT 93
--- NOTE | 2024-09-01 17:02 | Discharge Summary ---
Discharge Summary Date of Service September 01, 2024 Principal Dx & Hospital Course #1 = Principal Diagnosis (1) Acute dyspnea: (2) Elevated procalcitonin: (3) Right lower lobe pneumonia: Plan 34 year old male with no pmh who presents to the ED on 08/29/2024 with complaints of cough/intermittent shortness of breath x 1 week and noted to have Right lower lobe pneumonia. He is being managed for the following: Dyspnea Right lower lobe pneumonia Sepsis POA: 2/2 pna Pt comes in w/ productive cough x1 week and fever. BioFire negative, procalcitonin elevated, lactate normal, MRSA neg. HR and Temp elevated at presentation. f/u admitting blood and sputum Cx. No growth so far. Continue p.o. Zithromax 08/29 and IV ceftriaxone 08/29, will get CXR in AM. Robitussin as needed for cough, incentive spirometry Fever control getting better, Tmax 38.1C, pt feels better and reports improving N, V and appetite. Will c/w IV atb today, except dc next 1-2 if pt is afebrile for > 24 hours and CXR w/ no new issues. DVT prophylaxis: Hep sc. Full code Notes For Next Care Provider 34 year old male with no pmh who presents to the ED on 08/29/2024 with complaints of cough/intermittent shortness of breath x 1 week and noted to have Right lower lobe pneumonia. On medicine, given azithromycin/ceftriaxone with improvement to room air, downtrending fever curve. On room air, on 09/01/2024 patient medically stable for discharge home. To do: [ ] finish course of abx -incentive spirometry -short course of cough medicine given severe hacking cough Medication Changes From Visit -see above Admission HPI Per Admitting Provider The patient is a 34-year-old male with no past medical history who presents to the ED on 08/29/2024 with complaints of cough, intermittent shortness of breath flulike symptoms x 1 week. Reports intermittent fevers, subjective.. Also reports loss of appetite. Denies any nausea/vomiting does report bringing up some yellow sputum. Denies any recent sick contacts. Denies any recent travel. patient was mildly tachycardic in the low 100s on arrival. No hypoxia noted. Denies any smoking/drug use On arrival to the ED, labs are remarkable for NA 133, chloride 96, glucose 104, AST 46, procalcitonin 1.62 BioFire negative Chest x-ray with right lower lobe pneumonia Chest CT showed right lower lobe pneumonia, small pleural effusion, reactive lymphadenopathy, negative for PE The patient will be admitted for further management of pneumonia Discharge Exam Gen: A&O 3 NAD HEENT: NCAT, EOMI, not icteric. External ears normal. No rhinorrhea. Moist mucous membranes. Neck: Supple, full range of motion, no observable masses, No meningeal sign. Lungs: No Respiratory distress. CV: RRR, no edema. Abdomen: Soft, nondistended, No rebound tenderness. MSK: No joint swelling, no redness. Skin: No rashes, petechiae, lesions. Normal color per patient. Neuro: Normal Gait, Grossly intact. Psych: Appropriate for situation. Updated Medication List Medication Instructions Recorded Confirmed Type Incentive Spirometer #1 ea 09/01/24 Rx albuterol sulfate 90 mcg/actuation 1 inh inhalation Q6H PRN shortness 09/01/24 Rx aerosol inhaler of breath or wheezing #8.5 grams cefdinir 300 mg capsule 300 mg PO BID 7 days #14 caps 09/01/24 Rx codeine 8 mg-guaifenesin 200 mg/5 5 ml PO HS PRN flu symptoms #473 mL 09/01/24 Rx mL oral liquid Hospital Stay Data Consultations 08/29/24 15:48 ED Decision to Admit Stat Diagnostic Imagining Performed 08/29/24 14:07 CT for pulmonary embolism PE [CT angio chest PE protocol] Stat Pending Results Patient Have Any Pending Studies at Discharge: No Discharge Instructions Given to Patient (Per Discharging Provider) 1. Please follow up with PCP. 2. Stay hydrated! 3. Finish abx course and take medications as prescribed. Total Time Total Time Spent Total Time Spent (In Minutes): I spent a total of 35 minutes in direct patient care, including [id number] time with the patient and/or family, reviewing medical records, ordering and reviewing diagnostic tests, and coordinating care with other healthcare providers. This time includes: history taking, physical examination, medical decision making, counseling, ECG interpretation, imaging interpretation, lab interpretation, orders, and education, excluding time spent in the performance of separately billed services.
== END 2024-09-01 14:37 | disposition home or self-care (01) | DRG 871 ==
LOC: ED 13:51 → 3W 16:12 → SUATTDRO 16:12 → 3W 17:54